=== PATIENT | male | born 1985 | race Caucasian/White ===

== ENCOUNTER 2020-08-29 12:07 | Outpatient (CLI) | payer OTHER ==
[2020-08-29] MEDS ORDERED: GADOBUTROL 10 MMOL/10 ML VIAL ONE (12:43)
--- NOTE | 2020-08-29 13:57 | MRI Report ---
PROCEDURE: Brain W/WO INDICATIONS: MIXED HEADACHE CONTRAST: IV CONTRAST: Gadavist ml: 7.8 TECHNIQUE: Noncontrast axial T1 spin echo, axial T2 fast spin echo, sagittal and axial FLAIR, coronal T2 fast sp in echo, axial gradient echo, axial diffusion and ADC through the brain. After the administration of contrast, axial and coronal T1 spin echo with fat saturation through the brain. COMPARISON: None. FINDINGS: Image quality: Excellent. CSF spaces: Basal cisterns are patent. No extra-axial fluid collections. Ventricles are normal in size and shape. Brain: No midline shift. No intracranial bleeds or masses. No abnormal intracranial enhancement. There is cerebral volume loss for age. There is periventricular white matter chronic small vessel is chemic change. The brainstem appears normal. Diffusion-weighted images demonstrate no acute ischemi c insults. No chronic ischemic insults. Normal intravascular flow voids are present. Skull and face: Calvarial marrow is normal in signal. Orbits appear normal. Sinuses: Sinuses and mastoids are clear other than mucus retention cysts in the maxillary sinuses. IMPRESSION: Essentially unremarkable MRI of the brain with no mass lesion, abnormal intracranial enhancement, or other significant intracranial abnormality to explain headache symptoms. There are mucous retention cysts in the maxillary sinuses with no significant paranasal sinus or mast oid air cell inflammatory changes otherwise. Reviewed by: Huang Fitzgerald MD on 08/29/2020 1:55 PM PDT Approved by: Huang Fitzgerald MD on 08/29/2020 1:55 PM PDT Station ID: [id number]
[2020-08-29] MEDS: GADOBUTROL 10 MMOL/10 ML VIAL IVP ONE (16:33)
--- NOTE | 2020-08-29 17:41 | MRI Report ---
PROCEDURE: Angio Brain W/O (MRA) INDICATIONS: MIXED HEADACHE TECHNIQUE: Noncontrast axial 3-D [id number] MR angiogram, with 3-dimensional maximum intensity projection (M IP) reformats of the internal carotid arteries and posterior circulation then performed. COMPARISON: None. FINDINGS: Image quality: Excellent. Anterior circulation: Intracranial internal carotid arteries demonstrate intraluminal flow signal. The flow within the paired anterior cerebral arteries is normal and symmetric. The flow within the m iddle cerebral arteries is normal and symmetric. The anterior communicating artery is seen. Normal f low noted in the bilateral ophthalmic arteries. No stenoses, occlusions, or aneurysms. Posterior circulation: Visualized portions of the vertebral arteries demonstrate normal caliber, and join to form a normal appearing basilar artery. The flow within the posterior cerebral arteries is normal and symmetric. No stenoses, occlusions, or aneurysms. IMPRESSION: No large vessel occlusion, vascular stenosis, vascular dissection or aneurysm. Reviewed by: Yasmin Parada MD, PhD on 08/29/2020 5:39 PM PDT Approved by: Yasmin Parada MD, PhD on 08/29/2020 5:39 PM PDT Station ID: [id number]
== END 2020-08-29 12:08 | disposition home or self-care (01) ==
LOC: DI 12:07
PROVIDERS: ATTEND Family Medicine
DX: J34.1 Cyst and mucocele of nose and nasal sinus (principal); G44.89 Other headache syndrome
CPT/HCPCS: 70544; 70553; A9585